=== PATIENT | male | born 1985 | race African-American/Black ===

== ENCOUNTER 2017-12-13 15:41 | Emergency (ER) | payer OTHER ==
[2017-12-13 15:47] VITALS: BP 127/79; PULSE 82; TEMP 97; BMI 29.8
[2017-12-13] MEDS ORDERED: IBUPROFEN 600 MG TABLET (FP) PO ONE (17:01)
--- NOTE | 2017-12-13 17:04 | PDOC ---
History of Present Illness - General Chief Complaint: Pain, Acute Stated Complaint: RT SHOULDER PAIN Time Seen by Provider: 12/13/17 16:50 Past History - Past Medical History Allergies/Adverse Reactions: Allergies Allergy/AdvReac Type Severity Reaction Status Date / Time ampicillin Allergy Mild Rash Verified 12/13/17 15:47 erythromycin base Allergy Verified 12/13/17 15:47 [Erythromycin Base] Home Medications: Ambulatory Orders NK [No Known Home Medication] 12/13/17 COPD: No - Immunization History Immunization Up to Date: Yes - Suicide/Smoking/Psychosocial Hx Smoking Status: Yes Smoking History: Never smoked Have you smoked in the past 12 months: Yes Number of Cigarettes Smoked Daily: 4 Cigars Per Day: 0 'Breaking Loose' booklet given: 10/04/12 Hx Alcohol Use: No Drug/Substance Use Hx: No Substance Use Type: None Hx Substance Use Treatment: No *Physical Exam - Vital Signs Last Vital Signs Temp Pulse Resp BP Pulse Ox 97 F L 82 18 127/79 99 12/13/17 15:46 12/13/17 15:46 12/13/17 15:46 12/13/17 15:46 12/13/17 15:46 *DC/Admit/Observation/Transfer Diagnosis at time of Disposition: Shoulder pain, right Qualifiers: Chronicity: acute Qualified Code(s): M25.511 - Pain in right shoulder - Discharge Dispostion Disposition: HOME Condition at time of disposition: Stable Admit: No - Referrals Referrals: Tim Mcqueen MD [Primary Care Provider] - - Patient Instructions Printed Discharge Instructions: DI for Shoulder Pain Additional Instructions: You have shoulder pain in your surgically repaired shoulder. Please avoid lifting more than 10 pounds for the next 48 hours. Please take 800 mg of Motrin 3 times a day to help with the swelling and pain. Ice the area to help reduce swelling. You may use heat tomorrow. Please follow-up with Dr. Parmar as soon as possible. Return to the emergency department if you have worsening pain, numbness and tingling in your arm, shortness of breath, or any changes in your symptoms - Post Discharge Activity Forms/Work/School Notes: Back to Work
== END 2017-12-13 17:09 | disposition home or self-care (01) ==
LOC: JERFT 15:41
DX: S49.81XA Other specified injuries of right shoulder and upper arm, initial encounter (principal); X50.1XXA Overexertion from prolonged static or awkward postures, initial encounter; Y93.89 Activity, other specified; Y92.89 Other specified places as the place of occurrence of the external cause; Y99.0 Civilian activity done for income or pay
CPT/HCPCS: 99281-25

== ENCOUNTER 2018-11-14 18:11 | Emergency (ER) | payer OTHER ==
[2018-11-14 18:25] VITALS: BP 132/66; PULSE 83; BMI 28.5
[2018-11-14] MEDS ORDERED: KETOROLAC TROMETHAMINE 30 MG/1 ML VIAL IM ONE (19:48)
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
[2018-11-14] MEDS ORDERED: KETOROLAC TROMETHAMINE 30 MG/1 ML VIAL ONE (19:57)
== END 2018-11-14 20:55 | disposition home or self-care (01) ==
LOC: JERFT 18:11
PROC: 3E0233Z Introduction of Anti-inflammatory into Muscle, Percutaneous Approach (ICD-10-PCS; principal; 2018-11-14)
DX: S46.811A Strain of other muscles, fascia and tendons at shoulder and upper arm level, right arm, initial encounter (principal); X50.0XXA Overexertion from strenuous movement or load, initial encounter; X02.8XXA Other exposure to controlled fire in building or structure, initial encounter; Y93.89 Activity, other specified; Y92.038 Other place in apartment as the place of occurrence of the external cause; Y99.0 Civilian activity done for income or pay
CPT/HCPCS: 73030-TC-RT-FY; 99281-25

== ENCOUNTER 2019-11-10 19:00 | Emergency (ER) | payer OTHER ==
--- NOTE | 2019-11-10 19:42 | PDOC ---
Rapid Medical Evaluation Medical Evaluation: Allergies Allergy/AdvReac Type Severity Reaction Status Date / Time ampicillin Allergy Mild Rash Verified 12/13/17 15:47 erythromycin base Allergy Verified 12/13/17 15:47 [Erythromycin Base] 11/10/19 19:41 I have performed a brief in-person evaluation of this patient. The patient presents with a chief complaint of:R foot injury Pertinent physical exam findings:defer to ED provider, slight limp at triage I have ordered the following:xray The patient will proceed to the ED for further evaluation Discharge Disposition - Diagnosis Foot injury Qualifiers: Encounter type: initial encounter Laterality: right Qualified Code(s): S99.921A - Unspecified injury of right foot, initial encounter - Referrals - Patient Instructions - Post Discharge Activity
[2019-11-10 19:54] VITALS: BP 131/70; PULSE 65; TEMP 98; BMI 29.8
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
== END 2019-11-10 21:00 | disposition home or self-care (01) ==
LOC: JER 19:00
DX: S96.811A Strain of other specified muscles and tendons at ankle and foot level, right foot, initial encounter (principal); V86.41XA Person injured while boarding or alighting from ambulance or fire engine, initial encounter; Y93.89 Activity, other specified; Y92.89 Other specified places as the place of occurrence of the external cause; Y99.0 Civilian activity done for income or pay
CPT/HCPCS: 73610-TC-RT-FY; 73630-TC-RT-FY; 99282-25

== ENCOUNTER 2021-07-25 18:44 | Emergency (ER) | payer OTHER, BC ==
[2021-07-25 18:54] VITALS: BP 132/83; PULSE 67; TEMP 98.1; BMI 29.8
== END 2021-07-25 21:44 | disposition home or self-care (01) ==
LOC: JERFT 18:44
DX: S66.911A Strain of unspecified muscle, fascia and tendon at wrist and hand level, right hand, initial encounter (principal); X50.0XXA Overexertion from strenuous movement or load, initial encounter
CPT/HCPCS: 73110-TC-LT-FY; 73130-TC-LT-FY; 99283-25

== ENCOUNTER 2022-01-30 13:35 | Emergency (ER) | payer OTHER, BC ==
[2022-01-30 13:54] VITALS: BP 119/77; PULSE 66; TEMP 97.8; BMI 29.8
[2022-01-30] MEDS ORDERED: KETOROLAC TROMETHAMINE 30 MG/1 ML VIAL IM ONE (14:20)
[2022-01-30] MEDS ORDERED: KETOROLAC TROMETHAMINE 30 MG/1 ML VIAL ONE (14:22)
== END 2022-01-30 15:32 | disposition home or self-care (01) ==
LOC: JER 13:35 → JERFT 13:35
PROC: 3E023GC Introduction of Other Therapeutic Substance into Muscle, Percutaneous Approach (ICD-10-PCS; principal; 2022-01-30)
DX: S93.402A Sprain of unspecified ligament of left ankle, initial encounter (principal); X50.9XXA Other and unspecified overexertion or strenuous movements or postures, initial encounter
CPT/HCPCS: 73610-TC-LT-FY; 99284-25

== ENCOUNTER 2022-12-14 00:20 | Emergency (ER) | payer OTHER ==
[2022-12-14 00:30] VITALS: BP 131/87; PULSE 85; RESP 17; TEMP 98.2; BMI 29.0
[2022-12-14] MEDS ORDERED: LIDOCAINE 5% TOPICAL PATCH TP ONE (01:06)
[2022-12-14] MEDS ORDERED: KETOROLAC TROMETHAMINE 30 MG/1 ML VIAL IM ONE (01:06)
[2022-12-14] MEDS ORDERED: METHOCARBAMOL 500 MG TABLET PO ONE (01:06)
== END 2022-12-14 01:55 | disposition home or self-care (01) ==
LOC: JER 00:20
PROC: 3E023GC Introduction of Other Therapeutic Substance into Muscle, Percutaneous Approach (ICD-10-PCS; principal; 2022-12-14)
DX: S39.012A Strain of muscle, fascia and tendon of lower back, initial encounter (principal); X50.0XXA Overexertion from strenuous movement or load, initial encounter
CPT/HCPCS: 99284-25

== ENCOUNTER 2023-09-19 13:03 | Emergency (ER) | payer OTHER ==
[2023-09-19 13:10] VITALS: BP 126/78; PULSE 73; RESP 18; TEMP 98.2; BMI 41.5
== END 2023-09-19 13:58 | disposition home or self-care (01) ==
LOC: JER 13:03 → JERFT 13:03
DX: T23.101A Burn of first degree of right hand, unspecified site, initial encounter (principal); X17.XXXA Contact with hot engines, machinery and tools, initial encounter
CPT/HCPCS: 99282-25

== ENCOUNTER 2025-06-19 14:21 | Emergency (ER) | payer OTHER ==
[2025-06-19 14:46] VITALS: BP 126/78; PULSE 97; RESP 20; TEMP 98.4; BMI 30.5
[2025-06-19] MEDS ORDERED: KETOROLAC TROMETHAMINE 30 MG/1 ML VIAL ONE (14:51)
[2025-06-19] MEDS: KETOROLAC TROMETHAMINE 30 MG/1 ML VIAL IM ONE (15:08)
== END 2025-06-19 15:45 | disposition home or self-care (01) ==
LOC: JERFT 14:21 → JER 14:21 → JERFT 15:45
PROC: 3E0233Z Introduction of Anti-inflammatory into Muscle, Percutaneous Approach (ICD-10-PCS; principal; 2025-06-19)
DX: S89.91XA Unspecified injury of right lower leg, initial encounter (principal); X50.1XXA Overexertion from prolonged static or awkward postures, initial encounter; Y99.0 Civilian activity done for income or pay
CPT/HCPCS: 73562-TC-RT-FY; 99284-25